=== PATIENT | male | born 1965 | race Caucasian/White ===

== ENCOUNTER 2016-05-07 00:24 | Inpatient (IN) ==
[2016-05-07] MEDS ORDERED: MORPHINE 2 MG/1 ML SYRINGE IV STA (00:51)
[2016-05-07] MEDS ORDERED: ASPIRIN 325 MG TABLET PO STA (00:51)
[2016-05-07] MEDS ORDERED: ALUM/MAG/SIMETH/LIDO VISC 1:1 30 ML BOTTLE PO STA (00:51)
[2016-05-07] MEDS ORDERED: ONDANSETRON 4 MG/2 ML VIAL IV STA (00:51)
[2016-05-07] MEDS ORDERED: NITROGLYCERIN 2% OINT 1 INCH/GM PACK TOP STA (00:51)
[2016-05-07] MEDS ORDERED: MORPHINE 2 MG/1 ML SYRINGE ONE (01:00)
[2016-05-07] MEDS ORDERED: ONDANSETRON 4 MG/2 ML VIAL ONE (01:00)
[2016-05-07] MEDS ORDERED: NITROGLYCERIN 2% OINT 1 INCH/GM PACK TOP ONE (01:00)
[2016-05-07] MEDS ORDERED: ASPIRIN 325 MG TABLET ONE (01:00)
[2016-05-07] MEDS ORDERED: ALUM/MAG/SIMETH/LIDO VISC 1:1 30 ML BOTTLE PO ONE (01:00)
[2016-05-07 01:17] LABS: Basophils # 0.1 10*3/uL (0.0-0.2); Basophils % 0.6 % (0.0-0.8); Eosinophils # 0.3 10*3/uL (0.0-0.87); Eosinophils % 2.4 % (0.00-10.9); Hematocrit 41.9 VOL% (42.0-52.0); Hemoglobin 14.4 GM/DL (14.0-18.0); Immature Granulocytes % 0.4 %; Immature Granulocytes Absolute 0.05 #; Lymphocytes # 1.5 10*3/uL (1.4-4.0); Mean Corpuscular HGB Conc 34.4 GM/DL (32-36); Mean Corpuscular Hemoglobin 30 PG (27-34); Mean Corpuscular Volume 87.7 FL (87-102); Mean Platelet Volume 11.1 FL (9.6-12.0); Neutrophils # 9.6 10*3/uL (1.4-7.4); Neutrophils % 76.6 % (38.7-73.9); Platelet Count 249 10*3/uL (130-400); Red Blood Count 4.78 10*6/uL (3.8-5.5); Red Cell Distribution Width 13.4 % (9.3-17.3); White Blood Count 12.5 10*3/uL (4.5-13.71)
[2016-05-07 01:18] LABS: Albumin 4.2 G/DL (3.4-5.0); Bilirubin,Total 0.5 MG/DL (0.2-1.0); Calcium 9.5 MG/DL (8.5-10.1); Magnesium 2.4 MG/DL (1.8-2.4); Osmolality,Calculated 294.6 MOS/KG (273-304); Potassium 4.4 MMOL/L (3.5-5.1); Total Protein 6.9 G/DL (6.4-8.3)
[2016-05-07 01:34] LABS: Apearance,Urine CLEAR (Clear); Bilirubin,Urine Negative (Negative); Blood, Urine Negative (Negative); Glucose,Urine (UA) Negative (Negative); Ketones,Urine Negative (Negative); Nitrite,Urine Negative (Negative); Protein,Urine Negative; RBC,Urine <1 /HPF (0-4); Urine Color Yellow (Yellow); Urine Specific Gravity 1.018 (1.001-1.035); Urine Urobilinogen < 2.0 EU/DL (0.2-1.0); WBC,Urine <1 /HPF (0-6)
[2016-05-07] MEDS ORDERED: ENOXAPARIN 100 MG/ML SYRINGE SUBCUT STA (01:40)
--- NOTE | 2016-05-07 01:41 | Emergency Department Note ---
Israel Gonsales Sierra, am scribing for, and in the presence of, Matt Caruso MD 01:24. Shady Gonsales Charles R, MD, personally performed the services described in this documentation, ascribed by Lainey Wood in my presence, and it is both accurate and complete . Arrival - Arrival Chief Complaint: Chest Pain Stated Complaint: chest pain ED Nursing Triage Note: pt arrives ems from home with complaint of sudden chest pain with n/v radiating down right arm after eating chili. pt currently states pain 08/07, denies sob. pt denies hx. pt received aspirin 325 po enroute. 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 He reports chest pain feels like an elephant sitting on his chest. Pt states he ate chili after sxs occurred. Pt has associated sxs of N/V. He reports he does still have his gallbladder and a family history of KS with both his parents after age of 60 but denies being diagnosed with heart or reflux problems. 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 Manzano. He reports he quit smoking a week ago. No other complaints/pain in ED. Onset (ago): hour(s) Consistency: constant Severity: mild, moderate Severity scale (1-10): 4 Allergies/Adverse Reactions: Allergies Allergy/AdvReac Type Severity Reaction Status Date / Time No Known Allergies Allergy Verified 05/07/16 00:41 Home Medications: Home Medications Medication Instructions Recorded Confirmed Type No Known Home Medications [No 05/07/16 05/07/16 History Known Home Medications] Review of System - Review of System 12 point system: reviewed and no additional remarkable complaints except as stated - Review of System Constitutional: Absent: fever Respiratory: Absent: cough Cardiovascular: Present: chest pain (lower part of chest) Gastrointestinal: Present: nausea, vomiting. Absent: abdominal pain Musculoskeletal: Present: arm pain (chest pain radiates down right arm). Absent : back pain, leg pain, neck pain Skin: Absent: rash Neurological: Absent: headache, confusion Psychiatric: Absent: anxiety Medical,Surgical,& Family Hx - Social History Smoking Status: Former smoker Frequency of Alcohol Use: Occasionally Type of Drug Use: None Exam Vital Signs: Vital Signs Temperature 98.1 F 05/07/16 00:31 Pulse Rate 86 05/07/16 00:38 Respiratory Rate 20 05/07/16 00:38 Blood Pressure 124/72 05/07/16 00:38 O2 Sat by Pulse Oximetry 97 05/07/16 00:38 - General General appearance: alert, in no apparent distress - Head Head exam: Present: atraumatic, normocephalic - Eye Eye exam: Present: PERRL, EOMI - ENT ENT exam: Present: mucous membranes moist. Absent: mucous membranes dry - Neck Neck exam: Present: full ROM. Absent: tenderness - Chest Chest inspection: Present: symmetric chest wall rise, tenderness (epigastric tenderness) - Respiratory Respiratory exam: Present: normal lung sounds bilaterally. Absent: respiratory distress - Cardiovascular Cardiovascular exam: Present: bradycardia, normal heart sounds - Abdominal Exam Abdominal exam: Present: soft. Absent: tenderness - Extremities Exam Extremities exam: Present: full ROM. Absent: tenderness - Back Exam Back exam: Present: full ROM. Absent: tenderness - Neurological Exam Neurological exam: Present: alert, oriented X3, CN II-XII intact. Absent: motor sensory deficit - Psychiatric Psychiatric exam: Present: normal affect, normal mood - Skin Skin exam: Present: warm, dry Course - Consultations Consultation #1: Dr. Zhang will admit the patient Time: 01:41 Results - Labs CBC & BMP: 05/07/16 00:37 05/07/16 00:37 Lab Results: I have reviewed the patients labs Labs: Laboratory Tests 05/07/16 05/07/16 05/07/16 00:37 00:37 00:37 Hct 41.9 L Neut % (Auto) 76.6 H Lymph % (Auto) 12.0 L Neut # (Auto) 9.6 H Dixon # (Auto) 1.0 H Sodium 146 H Anion Gap 16.4 H BUN 25 H Glucose 116 H Troponin I 0.080 H Disposition Clinical Impression: Chest pain, Elevated troponin Case discussed with: patient, patient's family Disposition: Still a Patient Condition: Stable Time of Disposition: 01:42
[2016-05-07 01:42] LABS: Barbiturates Screen,Urine Negative (Negative); Benzodiazepines Screen,Urine Negative (Negative); Cannabinoid Screen,Urine Negative (Negative); Opiate Screen,Urine Negative (Negative); Phencyclidine Screen,Urine Negative (Negative)
[2016-05-07] MEDS ORDERED: MORPHINE 2 MG/1 ML SYRINGE IV PRN (02:14)
[2016-05-07] MEDS ORDERED: ACETAMINOPHEN 325 MG TABLET PO PRN (02:14)
[2016-05-07] MEDS ORDERED: BISACODYL 5 MG TABLET PO PRN (02:14)
[2016-05-07] MEDS ORDERED: ONDANSETRON 4 MG/2 ML VIAL IV PRN (02:14)
--- NOTE | 2016-05-07 02:17 | Hospitalist History & Physical ---
Assessment and Plan - Time spent with patient Time spent discussing smoking cessation with patient: 3 to 10 minutes (1) Dyslipidemia Status: Acute Current Visit: Yes (2) Smoker Status: Acute Current Visit: Yes (3) Family history of heart disease Status: Acute Current Visit: Yes (4) Chest pain Status: Acute Current Visit: Yes (5) Elevated troponin Status: Acute Assessment and plan: Plan: Observe on telemetry, check serial cardiac enzymes, supportive care for chest pain. Given strong family history, his smoking history, and description of symptoms, may not be unreasonable to obtain stress test. If cardiac enzymes elevate significantly or EKG shows acute ischemic changes, would likely pursue left heart cath. Current Visit: Yes History of Present Illness Chief complaint: chest pressure with pain radiating down the right arm History of present illness: Mr. Miller is a 50 year old male with history of dyslipidemia. He takes fish oil. His primary care provider Dr. Woodruff had put him on pravastatin however he is intolerant to this due to muscle aches. He began having significant chest pressure with pain radiating down the right arm rated at worst of 6 out of 10, around 10 p.m. He became nauseated and vomited 1. He denies shortness of breath or headache/dizziness. The pain lasted until he got to the emergency room, it was partially relieved with aspirin. At the bedside he appears really comfortable he has nitro paste to the chest. He still reports some waxing and waning mild chest pressure but no radiation down the arm. He does not appear to have acute ST elevation or depression on EKG however we do not have a baseline EKG for comparison. His troponin is mildly abnormal and I was asked to admit the patient for further management. Home Medications Medication Instructions Recorded Confirmed Type No Known Home Medications [No 05/07/16 05/07/16 History Known Home Medications] Allergies Allergy/AdvReac Type Severity Reaction Status Date / Time No Known Allergies Allergy Verified 05/07/16 00:41 Medical,Surgical,& Family Hx - Medical History Cardio: No history of: CAD, Hypertension Endocrine: No history of: Diabetes Mellitus (NIDDM) - Surgical History Surgical History: noncontributory - Family History Family History: Reports;: Family Heart Disease - Social History Smoking Status: Former smoker (for 2 pack-a-day smoker quit one week ago) Have you smoked in the last 12 months: Yes Time spent discussing smoking cessation with patient: 3 to 10 minutes Frequency of Alcohol Use: Occasionally Type of Drug Use: None Marital Status: Unknown Functional capacity: independent ambulation Review of systems: A 12 point review of systems is negative except as specified in the HPI Exam - Constitutional Vitals: Period Temp Pulse Resp BP Sys/Kitchen Pulse Ox Last 24 Hr 98.1 F 56-86 18-20 117-124/72-84 96-97 Exam: EXAM: CONSTITUTIONAL: non toxic, NAD HEENT: NC, AT, OP benign, ALVARO, EOMI CV: RRR no m/g/r, pain not reproducible with palpation RESP: clear B/L, no w/r/r GI: abd soft, NT, ND, +bowel sounds INTEGUMENTARY: no lesions or rash EXTREMITIES: no c/c/e NEURO: no focal deficits PSYCH: unremarkable, A/O x3 Results - Labs CBC & BMP: 05/07/16 00:37 05/07/16 00:37 Lab Results: I have reviewed the past 24 hour labs - EKG EKG shows: sinus rhythm - Diagnostic Findings Procedure: Chest x-ray: image reviewed by me Quality Measures - Stroke Onset of Symptoms Date: 05/07/16
[2016-05-07] MEDS ORDERED: ENOXAPARIN 80 MG/0.8 ML SYRINGE SUBCUT ONE (02:33)
[2016-05-07 04:59] LABS: Basophils # 0.1 10*3/uL (0.0-0.2); Basophils % 0.6 % (0.0-0.8); Eosinophils # 0.1 10*3/uL (0.0-0.87); Eosinophils % 1.2 % (0.00-10.9); Hematocrit 38.1 VOL% (42.0-52.0); Hemoglobin 12.6 GM/DL (14.0-18.0); Immature Granulocytes % 0.3 %; Immature Granulocytes Absolute 0.03 #; Lymphocytes # 1.7 10*3/uL (1.4-4.0); Mean Corpuscular HGB Conc 33.1 GM/DL (32-36); Mean Corpuscular Hemoglobin 30 PG (27-34); Mean Corpuscular Volume 89.2 FL (87-102); Mean Platelet Volume 11.1 FL (9.6-12.0); Monocytes # 0.8 10*3/uL (0.11-0.8); Monocytes % 8.1 % (1.7-12.7); Neutrophils # 7.1 10*3/uL (1.4-7.4); Neutrophils % 72.8 % (38.7-73.9); Platelet Count 208 10*3/uL (130-400); Red Blood Count 4.27 10*6/uL (3.8-5.5); Red Cell Distribution Width 13.6 % (9.3-17.3); White Blood Count 9.8 10*3/uL (4.5-13.71)
[2016-05-07 05:35] LABS: Calcium 8.5 MG/DL (8.5-10.1); Osmolality,Calculated 294.6 MOS/KG (273-304); Potassium 4.3 MMOL/L (3.5-5.1); Risk Ratio 4.78; VLDL CHOLESTEROL 24.2 MG/DL
--- NOTE | 2016-05-07 07:18 | EKG Report ---
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
--- NOTE | 2016-05-07 07:36 | EKG Report ---
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
[2016-05-07] MEDS: PANTOPRAZOLE 40 MG TABLET PO SCH (08:17)
[2016-05-07] MEDS: ASPIRIN EC 325 MG TABLET PO SCH (08:17)
--- NOTE | 2016-05-07 08:18 | XRay Report ---
History: Chest pain. Nausea and vomiting Date: 05/07/2016 at 12:45 AM Study: Chest x-ray AP portable Comparison exam: No previous chest x-ray available There is borderline to mild cardiomegaly. There is no mediastinal mass. The pulmonary vasculature is not engorged. The lungs and pleural spaces are clear for shallow breath. There is no acute osseous abnormality. Impression: No acute cardiopulmonary process. Borderline cardiomegaly PROCEDURE INTERPRETED AT [facility] DEPARTMENT OF RADIOLOGY Final Report Signed by: Dr. Whit Guthrie
--- NOTE | 2016-05-07 08:51 | Cardiology Consult Note ---
Assessment and Plan (1) Non-STEMI (non-ST elevated myocardial infarction) Status: Acute Assessment and plan: He has a minimally elevated troponin. We need his CPKs. He'll need car catheterization were discussed in history present illness. We plan this out tomorrow. We'll do today. He has recurrent pains. Current Visit: Yes (2) Dyslipidemia Status: Chronic Assessment and plan: Patient is unable take atorvastatin and pravastatin previously. We will try him on Crestor and and if fails will try Livalo Current Visit: Yes (3) Family history of heart disease Status: Chronic Assessment and plan: Mother and father both coronary disease. Current Visit: Yes (4) Smoker Status: Chronic Assessment and plan: States he quit smoking week ago just because he decided to do so. Current Visit: Yes History of Present Illness - Data of Consult Patient: new to practice Consult date: 05/07/16 Requesting Physician: Ludwig Alexandre Primary care physician: Pedro Woodruff - Consult Narrative Reason for consult: chest pain History of present illness: Mr. Miller is a 50 year old male who yesterday about 10 p.m. was outside with his dog. He is not physically active though. He developed sudden onset of pain across his chest discomfort heavy aching sensation. Radial his right arm and his neck. He became had nausea vomiting with it but no diaphoresis or dyspnea. This persisted and he took an aspirin at home. He presented mercury stable chest pain was treated there. With that he had no further chest pains being mid cantrell. The patient on has no prior history of cardiac disease. He is had no angina or exertional dyspnea or or exertional chest discomfort. He's had no palpitations or syncope or near syncope. He denies any PND or orthopnea. His ECG reveals sinus rhythm with some sinus bradycardia but without any acute ST changes. There was no T-wave abnormalities. There are some Q waves inferiorly that may indicate an old inferior myocardial infarction. The patient has a significant family history of heart disease and has dyslipidemia for which she is not on a statin drug. He also was a smoker but quit smoking one week ago. This patient needs chronic catheterization is as he is stable we will do this in the morning. We'll do it earlier today if necessary if he has recurrent pains. I discussed this procedure detail with the patient and his reviewing indication procedure high would be carried out as well as its risks. I discussed cardiac catheterization and percutaneous coronary intervention with the patient and available family. I reviewed with them the indications for the procedure and the basis of how the procedure would be carried out. I also reviewed with them the risk of the procedure which include but not necessarily limited to access site bleeding, bruising, pain, swelling or vascular injury that may require emergency vascular surgery, blood transfusion, or thrombin injection. Also discussed the possibility of stroke, myocardial infarction, arrhythmia which may require electrocardioversion, and the possibility of dye reaction that would require medical therapy. Also discussed the possibility of coronary artery injury, ruptured, closure or perforation that may require emergency bypass surgery. We also discussed the possibility of from a major complication. They voice understanding and agree to proceed. CC: Ludwig Alexandre - Home Medications and Allergies Home Medications: Home Medications Medication Instructions Recorded Confirmed Type Luckey-3 Fatty Acids [Fish Oil 1,000 mg PO QAM 05/07/16 05/07/16 History Concentrate] Allergies/Adverse Reactions: Allergies Allergy/AdvReac Type Severity Reaction Status Date / Time No Known Allergies Allergy Verified 05/07/16 00:41 Review of systems: Constitutional: Denies anorexia, chills, fatigue, fever, frequent falls, night sweats, weight gain, weight loss Eyes: Denies visual changes or loss of vision Ears: Denies decreased hearing, vertigo Nose, mouth and throat: Denies dysphagia, epistaxis, headaches, neck pain, tongue swelling, Neck: Denies thyromegaly or masses. No stiffness. Cardiovascular: as per HPI Respiratory: Denies cough, dyspnea, hemoptysis, dyspnea on exertion, wheezing, snoring. Smoker. He does have instructed sleep apnea and is on CPAP. Gastrointestinal: Denies abdominal pain, constipation, dyspepsia, dysphagia, hematemesis, hematochezia, melena, nausea, vomiting Genitourinary: Denies dysuria, hematuria, nocturia Musculoskeletal: Denies arthralgias, joint swelling, muscle weakness, myalgias Neurological: denies abnormal gait, abnormal speech, confusion, convulsions, frequent falls, headaches, memory loss, syncope Psychiatric: Denies anxiety, confusion, depression Endocrine: Denies cold intolerance, fatigue, heat intolerance Hematologic/Lymphatic: Denies easy bleeding, easy bruising Dermatologic: Denies Rash, itching, shingles Medical,Surgical,& Family Hx - Medical History Cardio: No history of: CAD, Hypertension Endocrine: History of: Dyslipidemia No history of: Diabetes Mellitus (NIDDM) Respiratory: History of: Obstructive Sleep Apnea - Surgical History Orthopedic Surgeries: Surgical HX of;: Orthopedic Surgery (left forearm/wrist for soft tissue injury) - Family History Family History: Reports;: Family Heart Disease (mother and father both having coronary disease and bypass surgery.) - Social History Smoking Status: Former smoker (quit smoking one week ago but prior to that smoked one to 2 packs a day.) Have you smoked in the last 12 months: Yes Time spent discussing smoking cessation with patient: 3 to 10 minutes Frequency of Alcohol Use: Occasionally Type of Drug Use: None Marital Status: Lives With:: Spouse Functional capacity: independent ambulation Physical Examination Vital Signs Temp Pulse Resp BP Pulse Ox 98.1 F 56 L 18 117/84 96 05/07/16 00:31 05/07/16 00:31 05/07/16 00:31 05/07/16 00:31 05/07/16 00:31 Other: General appearance: Overweight/obese, no acute distress Head exam: normal inspection, atraumatic Eye exam: Pupils are equal and reactive. EOMI. There is no trauma. Ear exam: Anatomically normal. Normal auditory acuity to conversation. Oral exam: No significant oral lesions. Neck exam: normal inspection no JVD. No carotid bruit. Trachea is in midline. Respiratory exam: clear to auscultation bilaterally posteriorly and anteriorly with good air movement. No rales, rhonchi or wheezes. Cardiovascular exam: regular rate and rhythm, no murmur or gallop or rub. No precordial lift. No bruits over the major arteries. Chest wall/torso: Anatomically normal. No tenderness, deformity Peripheral Pulses: 2+ throughout. GI/Abdominal exam: Obese. Normal bowel sounds, soft and nontender, no abdominal bruits or pulsatile masses. Musculoskeletal/Extremities exam: normal inspection without edema or cyanosis. No deformities or trauma. Neurological exam: alert, oriented X3. There is no gross neurologic deficits. Psychiatric exam: normal affect, normal mood. Cognitive function is grossly intact. Skin exam: normal color, warm. No rashes or other skin lesions. Result/EKG - Labs CBC & BMP: 05/07/16 04:21 05/07/16 04:21 Lab Results: I have reviewed the past 24 hour labs (the patient's troponin his increased on the 2.080. His BNP was 16. His lipids are elevated.) Labs: Laboratory Results - last 24 hr 05/07/16 05/07/16 05/07/16 04:21 04:21 04:21 WBC 9.8 RBC 4.27 Hgb 12.6 L Hct 38.1 L MCV 89.2 MCH 30 MCHC 33.1 RDW 13.6 Plt Count 208 MPV 11.1 Neut % (Auto) 72.8 Lymph % (Auto) 17.0 L [place] % (Auto) 8.1 Eos % (Auto) 1.2 Baso % (Auto) 0.6 Neut # (Auto) 7.1 Lymph # (Auto) 1.7 [place] # (Auto) 0.8 Eos # (Auto) 0.1 Baso # (Auto) 0.1 Immature Gran % 0.3 Nucleated RBC % 0.0 Immature Gran # 0.03 Nucleated RBCs # 0.00 Sodium 146 H Potassium 4.3 Chloride 110 H Carbon Dioxide 26 Anion Gap 14.3 BUN 24 H Creatinine 1.20 GFR Calculation 79 BUN/Creatinine Ratio 20.00 Glucose 111 H Calculated Osmolality 294.6 Calcium 8.5 Troponin I 0.845 H D Triglycerides 121 Cholesterol 196 LDL Cholesterol 138.0 VLDL Cholesterol 24.2 HDL Cholesterol 41 Heart Disease Risk Ratio 4.78 05/07/16 06:22 WBC RBC Hgb Hct MCV MCH MCHC RDW Plt Count MPV Neut % (Auto) Lymph % (Auto) [place] % (Auto) Eos % (Auto) Baso % (Auto) Neut # (Auto) Lymph # (Auto) [place] # (Auto) Eos # (Auto) Baso # (Auto) Immature Gran % Nucleated RBC % Immature Gran # Nucleated RBCs # Sodium Potassium Chloride Carbon Dioxide Anion Gap BUN Creatinine GFR Calculation BUN/Creatinine Ratio Glucose Calculated Osmolality Calcium Troponin I 2.080 H D Triglycerides Cholesterol LDL Cholesterol VLDL Cholesterol HDL Cholesterol Heart Disease Risk Ratio - Impressions Impressions: Initial ECG was sinus rhythm with incomplete right bundle-branch block/slight right ventricular conduction delay. There is no specific acute abnormalities. Possible small Q waves inferiorly. Follow-up ECG reveals the same Q waves inferiorly but does not have the incomplete right bundle branch block. Still no acute ST changes of ischemia. Quality Measures - Stroke Onset of Symptoms Date: 05/07/16 Specialty Discharge - Follow Up or Referrals - Discharge Medications No Action Luckey-3 Fatty Acids [Fish Oil Concentrate] 1,000 mg PO QAM
[2016-05-07] MEDS ORDERED: ASPIRIN 325 MG TABLET PO ONE (09:04)
[2016-05-07] MEDS ORDERED: POTASSIUM CHLORIDE RIDER 10 MEQ in PREMIX 1 EACH IV PRN (09:04)
[2016-05-07] MEDS ORDERED: MAGNESIUM SULF RIDER 2 GM in PREMIX 1 EACH IV PRN (09:04)
[2016-05-07] MEDS ORDERED: DIAZEPAM 5 MG TABLET PO ONE (09:04)
[2016-05-07] MEDS ORDERED: diphenhydrAMINE CAP 25 MG CAPSULE PO ONE (09:04)
--- NOTE | 2016-05-07 09:51 | Hospitalist Progress Note ---
Assessment and Plan (1) Non-STEMI (non-ST elevated myocardial infarction) Status: Acute Assessment and plan: Troponin today is 2.080. He is not experiencing chest pain. I appreciate the Cardiology note. The plan is for cardiac cath tomorrow. Current Visit: Yes (2) Dyslipidemia Status: Chronic Assessment and plan: I agree with Cardiology's plans for patient who has been so far statin intolerant. Current Visit: Yes (3) Cigarette smoker Status: Acute Assessment and plan: He discontinued smoking one week ago. Current Visit: Yes Exam - Constitutional Vitals: Period Temp Pulse Resp BP Sys/Kitchen Pulse Ox Last 24 Hr 98.5 F-98.6 F 47-62 17-18 103-108/53-55 97-98 General appearance: no acute distress - Head Head exam: Present: normal inspection - Neck Neck exam: Present: normal inspection - Respiratory Respiratory exam: Present: clear to auscultation bilaterally - Cardiovascular Cardiovascular exam: Present: regular rate and rhythm - GI/Abdominal GI/Abdominal exam: Present: normal bowel sounds, soft, other (nontender) - Extremities Exam Extremities exam: Present: normal inspection - Skin Skin exam: Present: normal color Results - Labs CBC & BMP: 05/07/16 04:21 05/07/16 04:21 Quality Measures - Stroke Onset of Symptoms Date: 05/07/16 Specialty Discharge - Follow Up or Referrals - Discharge Medications No Action Wing-3 Fatty Acids [Fish Oil Concentrate] 1,000 mg PO QAM
[2016-05-07] MEDS: METOPROLOL TARTRATE 25 MG TABLET PO SCH ×2 (11:52→21:19)
[2016-05-07] MEDS: ROSUVASTATIN 20 MG TABLET PO SCH (11:52)
[2016-05-07] MEDS: ENOXAPARIN 80 MG/0.8 ML SYRINGE SUBCUT SCH ×2 (11:53→21:20)
[2016-05-07] MEDS: NITROGLYCERIN 2% OINT 1 INCH/GM PACK TOP SCH ×2 (12:15→19:09)
[2016-05-07 15:07] LABS: CKMB % 6.7 %
[2016-05-07 15:11] LABS: Troponin I Only 18.4 NG/ML (0.00-0.045)
[2016-05-07] MEDS ORDERED: ENOXAPARIN 40 MG/0.4 ML SYRINGE SUBCUT SCH (21:00)
[2016-05-07] MEDS ORDERED: ATORVASTATIN 40 MG TABLET PO SCH (21:00)
[2016-05-07] MEDS: SODIUM CHLORIDE 0.9% 1,000 ML IV SCH (21:19)
[2016-05-08] MEDS: NITROGLYCERIN 2% OINT 1 INCH/GM PACK TOP SCH ×2 (01:15→06:25)
[2016-05-08 05:25] LABS: CKMB % 5.2 %
[2016-05-08 05:35] LABS: Troponin I Only 24.4 NG/ML (0.00-0.045)
[2016-05-08] MEDS: SODIUM CHLORIDE 0.9% 1,000 ML IV SCH ×3 (06:00→21:20)
--- NOTE | 2016-05-08 06:54 | Cardiology Progress Note ---
Assessment and Plan (1) Non-STEMI (non-ST elevated myocardial infarction) Status: Acute Assessment and plan: He is had an increase in his troponin and CPK. His ECG is not back. Current Visit: Yes (2) Dyslipidemia Status: Chronic Assessment and plan: Patient is unable take atorvastatin and pravastatin previously. We will try him on Crestor and and if fails will try Livalo Current Visit: Yes (3) Family history of heart disease Status: Chronic Assessment and plan: Mother and father both coronary disease. Current Visit: Yes (4) Smoker Status: Chronic Assessment and plan: States he quit smoking week ago just because he decided to do so. Current Visit: Yes Cardiology - PN: Subj Interval history: Patient denies any further chest pain. He is not short of breath or other complaints. Said no palpitations. Rhythm is been sinus is been a little bradycardic. Vital signs been stable. Cardiac enzymes the peak CPK of 13.67 and troponin of 18. Exam (Progress Note) - Constitutional Vitals: Period Temp Pulse Resp BP Sys/Kitchen Pulse Ox Last 24 Hr 97.0 F-98.7 F 47-57 18-20 103-118/55-67 96-98 Exam: General appearance: Overweight/obese, no acute distress Head exam: normal inspection, atraumatic Eye exam: Pupils are equal and reactive. EOMI. There is no trauma. Neck exam: normal inspection no JVD. No carotid bruit. Trachea is in midline. Respiratory exam: clear to auscultation bilaterally posteriorly and anteriorly with good air movement. No rales, rhonchi or wheezes. Cardiovascular exam: regular rate and rhythm, no murmur or gallop or rub. No precordial lift. No bruits over the major arteries. Chest wall/torso: Anatomically normal. No tenderness, deformity Peripheral Pulses: 2+ throughout. GI/Abdominal exam: Obese. Normal bowel sounds, soft and nontender, no abdominal bruits or pulsatile masses. Musculoskeletal/Extremities exam: normal inspection without edema or cyanosis. No deformities or trauma. Neurological exam: alert, oriented X3. There is no gross neurologic deficits. Psychiatric exam: normal affect, normal mood. Cognitive function is grossly intact. Skin exam: normal color, warm. No rashes or other skin lesions. Result/EKG - Labs CBC & BMP: 05/07/16 04:21 05/07/16 04:21 Lab Results: I have reviewed the past 24 hour labs (peak CPK of 1367 with troponin of 24.4.) Labs: Laboratory Results - last 24 hr 05/07/16 05/07/16 05/08/16 06:22 14:13 03:04 Total Creatine Kinase 1367 H 1222 H CK-MB (CK-2) 91.8 H 63.3 H D CK and CKMB Interp 6.7 5.2 Troponin I 2.080 H D 18.400 H D 24.400 H D Quality Measures - Stroke Onset of Symptoms Date: 05/07/16 Specialty Discharge - Follow Up or Referrals - Discharge Medications No Action [place]-3 Fatty Acids [Fish Oil Concentrate] 1,000 mg PO QAM
--- NOTE | 2016-05-08 06:59 | History and Physical Update ---
Sedation H&P Update - History and Physical H&P was reviewed, the patient examined and there: are no changes in the patients condition since last H&P was completed. - Dictation Physical: refer to H&P completed by admitting physician - Physical Exam Mental Status: alert and oriented Heart: regular rate and rhythm Lung: clear to auscultation Abdomen: within normal limits Vitals: within normal limits History and Physical Changes: None - Sedation Plan for Sedation: moderate Patient Consent: Procedure disscussed with patient and patinet has consented., Risks and benefits were discussed with patient,including infection,, bleeding, injury to surrounding structures, seizure, temporary nerve, Patient understands and accepts potential risks/benefits and agrees to, proceed. ASA Class: III Airway Assessment: Class III: Soft palate, base of uvula visible
--- NOTE | 2016-05-08 07:17 | EKG Report ---
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
[2016-05-08] MEDS ORDERED: diphenhydrAMINE CAP 50 MG CAPSULE ONE (07:37)
[2016-05-08] MEDS ORDERED: DIAZEPAM 5 MG TABLET ONE (07:38)
[2016-05-08] MEDS: ASPIRIN EC 325 MG TABLET PO SCH (07:44)
[2016-05-08] MEDS ORDERED: MIDAZOLAM 2 MG/2 ML VIAL ONE (07:55)
[2016-05-08] MEDS ORDERED: fentaNYL 100 MCG/2 ML VIAL ONE (07:55)
[2016-05-08] MEDS ORDERED: LIDOCAINE 1% 20 ML VIAL ONE (07:56)
[2016-05-08] MEDS ORDERED: ENOXAPARIN 30 MG/0.3 ML SYRINGE ONE (08:22)
[2016-05-08] MEDS ORDERED: TIROFIBAN 5,000 MCG/100 ML PREMIX IV ONE (08:25)
[2016-05-08] MEDS ORDERED: TICAGRELOR 90 MG TABLET ONE (08:49)
[2016-05-08] MEDS ORDERED: ZALEPLON 5 MG CAPSULE PO PRN (08:50)
--- NOTE | 2016-05-08 08:58 | Operative Note ---
Date of procedure: 05/08/16 Procedure Preformed: Left heart cath with stenting of distal RCA Surgeon / Physician: Toy Erazo Wire Transfer Clerk: Adonis Daigle Post-op diagnosis: same Findings: 99% stenosis distal RCA with successful stenting of this area. See full report for details. Specimens: none sent Estimated blood loss: minimal Condition: stable Anesthesia: local, conscious sedation Disposition: floor
--- NOTE | 2016-05-08 09:03 | Cardiac Catheterization ---
Date of Procedure:: 05/08/16 Pre-op Diagnosis: Non-STEMI, CAD Post-op diagnosis: same Procedure: LEFT HEART CATHERIZATION History: Pre-Op diagnosis: Postoperative diagnosis: Procedures: 1. Left heart catheterization. 2. Left ventricular angiogram. 3. Selective left and right coronary angiograms. 4. Percutaneous coronary intervention with stent in 5.. Right common femoral artery angiogram with Angio-Seal hemostasis. 6. Left internal mammary artery angiogram. Equipment: 6 [place]ander arterial sheath, 6 [place] diagnostic pigtail catheter, JL4 and JR4 diagnostic catheters. A 6 [place] Angio-Seal hemostatic device. For percutaneous coronary intervention: Medications: Preoperative Benadryl and Valium given by mouth. Lidocaine 1% local anesthesia 10 mls administered by myself. Intraprocedure patient received Versed 2 milligrams IVP, fentanyl 100 micrograms IVP. For PCI: Lovenox 25 mgms; Aggrastat bolus 42 mls ; Aggrastat infusion 15.1 ml/hr, Brilinta 180 mgms. Complications: None immediate. Contrast: Omnipaque 201 milliliters. Description of procedure: After informed consent the patient was given preoperative medications and brought to the catheterization laboratory where their right groin was prepped and draped in usual fashion. IV sedation was then obtained after which local anesthesia was administered at the right groin over the right common femoral artery. Using modified Seldinger technique the right common femoral artery was cannulated with 6 [place] arterial sheath placed. The pigtail catheter was then advanced through the sheath in a retrograde approach through the aorta to the aortic valve. The catheter was advanced through the aortic valve where left ventricular pressures were measured. The catheter was then pulled back into the aortic root and pressures measured. The catheter was then advanced across the aortic valve into the left ventricle where left ventricular angiogram was obtained in the right anterior oblique view. The pigtail catheter was then removed. The JL4 diagnostic coronary catheter was then advanced through the sheath in a retrograde approach and used to cannulate the left coronary artery of which angiograms were obtained in multiple projections. This catheter was then removed. The JR 4 diagnostic coronary catheter was then advanced retrograde through the aorta and used to cannulate the right coronary artery of which angiograms were obtained in multiple projections. Angiograms were then reviewed. Intervention of the RCA was then carried out by advancing a J are 4 guide catheter through which a pro-water flexed PCI guidewire was advanced across the high-grade occlusion. Over this a 2.5 x 15 mm apex balloon was advanced and dilation interest. For 30 seconds was carried out. This was then exchanged at the angiograms for 2.0 x 12 mm Synergy GENO. This stent was deployed to atmospheres for 25 seconds. Final angiograms postintervention were then obtained and distal RCA had 0% residual stenosis and GUANACO-3 flow. This time the interventional equipment including guide catheter was removed and Angio- Seal hemostasis was obtained in the right common for artery. Hemodynamic data: LV 113/3 , EDP 22 ; AO root 112/72 , mean 91 . Left ventricular angiogram: Left ventricle size is normal may mild global hypokinesis with an ejection fraction of 50%. No similar regurgitation. Aortic valve. Tricuspid structure. The thoracic aorta is anatomically normal without gross pathology for the right oblique view. The abdominal aorta appears to be unremarkable. The sheath is inserted in the right common femoral artery. Left main coronary artery angiogram: Left main coronary artery is large bifurcated LAD and circumflex arteries. It is without stenosis. Left anterior descending artery angiogram: Proximally the LAD is a medium to large size vessel that extends to the posterior apical region. The first branch is a medium caliber vessel, larger myocardium. Dangles otherwise small caliber vessels. There is no LAD disease or stenosis present. Circumflex artery angiogram: Circumflex artery is a large caliber vessel proximally it immediately gives rise to a very proximal large first obtuse marginal branch. This comes larger myocardium. Beyond this is circumflex gives rise to several small vessels. There is no stenosis or other disease in the circumflex artery proper branches. There are collaterals from the distal circumflex artery to the distal RCA. Right coronary artery angiogram: RCA is a medium caliber vessel and dominant. Is 95% stenosis just before the takeoff of the PDA. The distal vessels best seen oh by way of [id number] collaterals. Postintervention the distal RCA is seen in the PDA and posterior branches are small medium caliber vessels. The AV node artery has takeoff distal RCA. PCI of RCA: The 99% distal RCA stenosis with GUANACO 1 flow was dilated 0% residual stenosis with GUANACO-3 flow. Right common femoral artery angiogram: This vessel was seen by way left ventricular angiogram runoff. Impression: 1. Left ventricle is normal size with low-normal systolic function ejection fraction 50%. 2. LVEDP is 22 mmHg and mild elevated. 3. No significant mitral regurgitation demonstrated. 4. Aortic valve appears to tricuspid structure without gradient. 5. Left coronary artery system is widely patent without stenosis or disease. 6. The RCA had 99% stenosis distally with GUANACO 1 flow with some collateralization from [id number]. 7. Successful stenting of the distal RCA to 0% residual stenosis and GUANACO- 3 flow. 8. Successful Angio-Seal hemostasis a right common for artery. Discussion: We'll monitor the patient postintervention cart catheterization. We 'll carry out risk factor modification. Follow up as an outpatient. As his patient noted on patient being sent for dictation thank you Implants: See above Anesthesia: local, moderate conscious sedation Surgeon / Physician: Toy Erazo Assistant Fitness Manager: other (Adonis STORM) Estimated blood loss: minimal Specimens: none sent Condition: stable Disposition: floor - Medications / Follow-up Referrals: Toy Erazo MD [Physician] - (1 week with ECG)
[2016-05-08] MEDS ORDERED: TIROFIBAN 5,000 MCG/100 ML PREMIX IV SCH (10:00)
[2016-05-08] MEDS: METOPROLOL TARTRATE 25 MG TABLET PO SCH ×2 (10:11→21:09)
--- NOTE | 2016-05-08 10:26 | Hospitalist Progress Note ---
Assessment and Plan (1) Non-STEMI (non-ST elevated myocardial infarction) Status: Acute Assessment and plan: He is stable s/p PCI of distal RCA. Current Visit: Yes (2) Dyslipidemia Status: Chronic Assessment and plan: I agree with Cardiology's plans for patient who has been so far statin intolerant. Current Visit: Yes (3) Cigarette smoker Status: Acute Assessment and plan: He discontinued smoking one week ago. I again counselled him on the importance of tobacco cessation. Current Visit: Yes Exam - Constitutional Vitals: Period Temp Pulse Resp BP Sys/Kitchen Pulse Ox Last 24 Hr 97.0 F-98.7 F 50-57 18-20 106-118/60-67 96-98 General appearance: no acute distress - Head Head exam: Present: normal inspection - Neck Neck exam: Present: normal inspection - Respiratory Respiratory exam: Present: clear to auscultation bilaterally - Cardiovascular Cardiovascular exam: Present: regular rate and rhythm - GI/Abdominal GI/Abdominal exam: Present: normal bowel sounds, soft, other (nontender) - Extremities Exam Extremities exam: Present: other (no groin hematoma) - Skin Skin exam: Present: normal color Results - Labs CBC & BMP: 05/07/16 04:21 05/07/16 04:21 Quality Measures - VTE Contraindication to Pharmacological VTE Prophylaxis: High Risk of Bleeding - Stroke Onset of Symptoms Date: 05/07/16 Specialty Discharge - Follow Up or Referrals - Discharge Medications No Action [place]-3 Fatty Acids [Fish Oil Concentrate] 1,000 mg PO QAM
--- NOTE | 2016-05-08 11:33 | Event Note ---
Patient doing well post-car catheterization right groin is stable. Discussed findings with he and his implants. Provide them with pictures of his angiograms and review the results with them. He can be discharged tomorrow. Stable.
[2016-05-08] MEDS: ASPIRIN EC 81 MG TABLET PO SCH (12:34)
[2016-05-08] MEDS: ENOXAPARIN 80 MG/0.8 ML SYRINGE SUBCUT SCH ×2 (12:35→21:09)
[2016-05-08] MEDS: TICAGRELOR 90 MG TABLET PO SCH ×2 (12:38→21:09)
[2016-05-08] MEDS: ROSUVASTATIN 20 MG TABLET PO SCH (12:45)
[2016-05-08] MEDS: LISINOPRIL 2.5 MG TABLET PO SCH (12:46)
[2016-05-08] MEDS: PANTOPRAZOLE 40 MG TABLET PO SCH (12:46)
[2016-05-09 05:57] LABS: Basophils # 0.1 10*3/uL (0.0-0.2); Basophils % 0.5 % (0.0-0.8); Eosinophils # 0.3 10*3/uL (0.0-0.87); Eosinophils % 3.5 % (0.00-10.9); Hematocrit 43.6 VOL% (42.0-52.0); Hemoglobin 14.8 GM/DL (14.0-18.0); Immature Granulocytes % 0.4 %; Immature Granulocytes Absolute 0.04 #; Lymphocytes # 1.5 10*3/uL (1.4-4.0); Lymphocytes % 15.4 % (21.2-54.2); Mean Corpuscular HGB Conc 33.9 GM/DL (32-36); Mean Corpuscular Hemoglobin 30 PG (27-34); Mean Corpuscular Volume 87.2 FL (87-102); Mean Platelet Volume 11.2 FL (9.6-12.0); Monocytes # 1.1 10*3/uL (0.11-0.8); Monocytes % 11.3 % (1.7-12.7); Neutrophils # 6.8 10*3/uL (1.4-7.4); Neutrophils % 68.9 % (38.7-73.9); Platelet Count 239 10*3/uL (130-400); Red Cell Distribution Width 13.3 % (9.3-17.3); White Blood Count 9.8 10*3/uL (4.5-13.71)
[2016-05-09 06:20] LABS: CKMB % 2.7 %; Calcium 8.9 MG/DL (8.5-10.1)
--- NOTE | 2016-05-09 07:30 | EKG Report ---
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
[2016-05-09] MEDS: PANTOPRAZOLE 40 MG TABLET PO SCH (10:04)
[2016-05-09] MEDS: LISINOPRIL 2.5 MG TABLET PO SCH (10:04)
[2016-05-09] MEDS: TICAGRELOR 90 MG TABLET PO SCH (10:04)
[2016-05-09] MEDS: ASPIRIN EC 81 MG TABLET PO SCH (10:04)
[2016-05-09] MEDS: ROSUVASTATIN 20 MG TABLET PO SCH (10:04)
[2016-05-09] MEDS: ENOXAPARIN 80 MG/0.8 ML SYRINGE SUBCUT SCH (10:05)
[2016-05-09] MEDS: METOPROLOL TARTRATE 25 MG TABLET PO SCH (10:05)
--- NOTE | 2016-05-09 10:20 | Discharge Summary ---
Hospital Course - Hospital Course Hospital Course: Mr. Miller was hospitalized with a NSTEMI. He was seen in consultation by Dr. Erazo of Cardiology. The patient underwent PCI of the distal RCA on 05/08/2016. He did well post procedure with no complications. He was counselled about cigarette smoking cessation. At the time of discharge, he was stable and eager to go home. Diagnosis - Discharge Diagnosis (1) Non-STEMI (non-ST elevated myocardial infarction) Status: Acute (2) Dyslipidemia Status: Chronic (3) Cigarette smoker Status: Acute Specialty Discharge - Follow Up or Referrals Follow up with: Toy Erazo MD [Physician] - (1 week with ECG) - Discharge Medications No Action [place]-3 Fatty Acids [Fish Oil Concentrate] 1,000 mg PO QAM Discharge Plan - Discharge Data Disposition: Disch To Home/Self Care Condition at Discharge: Stable Discharge Diet: advance to your usual diet Activity: resume usual activities as tolerated Hygiene: no restrictions - Discharge Medications New Aspirin EC Tab 81 mg PO DAILY tablet Ticagrelor [Brilinta] 90 mg PO BID #60 tablet Lisinopril [Prinivil] 2.5 mg PO DAILY #30 tablet Rosuvastatin [Crestor] 20 mg PO DAILY #30 tablet Continue [place]-3 Fatty Acids [Fish Oil Concentrate] 1,000 mg PO QAM - Follow Up or Referral Follow Up: Toy Erazo MD [Physician] - (1 week with ECG) - Forms/Instructions Instructions: Left Heart Catheterization (DC), Heart Healthy Diet (GEN), Cigarette Smoking and Your Health (GEN), Coronary Intravascular Stent Placement (DC) Exam - Constitutional Vitals: Period Temp Pulse Resp BP Sys/Kitchen Pulse Ox Last 24 Hr 97.0 F-97.2 F 60-75 18-20 102-140/62-76 95 Discharge Results Labs on day of discharge: Labs from last 24 hours 05/09/16 05/09/16 05:27 05:27 WBC 9.8 RBC 5.00 Hgb 14.8 D Hct 43.6 MCV 87.2 MCH 30 MCHC 33.9 RDW 13.3 Plt Count 239 MPV 11.2 Neut % (Auto) 68.9 Lymph % (Auto) 15.4 L [place] % (Auto) 11.3 Eos % (Auto) 3.5 Baso % (Auto) 0.5 Neut # (Auto) 6.8 Lymph # (Auto) 1.5 [place] # (Auto) 1.1 H Eos # (Auto) 0.3 Baso # (Auto) 0.1 Immature Gran % 0.4 Nucleated RBC % 0.0 Immature Gran # 0.04 Nucleated RBCs # 0.00 Sodium 143 Potassium 4.0 Chloride 108 H Carbon Dioxide 25 Anion Gap 14.0 BUN 16 Creatinine 1.10 GFR Calculation 87 BUN/Creatinine Ratio 14.00 Glucose 101 Calculated Osmolality 285.0 Calcium 8.9 Total Creatine Kinase 446 H D CK-MB (CK-2) 11.9 H D CK and CKMB Interp 2.7 Troponin I 12.000 H D DS: Provider Date of admission: 05/07/16 02:14 Primary care physician: . No PCP Attending physician on admission: Ludwig Alexandre Consults: 05/07/16 07:40 Consult to Physician [CONS] Routine Comment: Consulting Provider: Kaveh Chavez Consulting Provider Notified: Yes When should Consulting Provider be notified: Now When should Consulting Provider be notified: Now Person Notified: Dr Chavez Date Notified: 05/07/16 Time Notified: 07:28 05/08/16 08:50 Consult to Cardiac Rehabilitation [CONS] Routine Reason for Cardiac Rehabilitation: Risk Factor Modification Home Exercise Program/Hao Appt Out Pt Cardiac Rehab Discharging clinician: Ludwig Alexandre Expected date of discharge: 05/09/16
--- NOTE | 2016-05-09 11:41 | Cardiology Progress Note ---
Addendum entered and electronically signed by Melia Nichols NP 05/09/16 11: 46: Addendum: Patient NOT being discharged on betablocker as BP will now allow for introduction but may be challenged outpatient. Original Note: Assessment and Plan - Time spent with patient Time spent with patient: Less than 30 minutes (1) Hypertension Status: Chronic Assessment and plan: Low dose GABRIELLA and Betablocker Current Visit: Yes (2) Dyslipidemia Status: Chronic Assessment and plan: Crestor. Will adjust outpatient in order to gain better control. Current Visit: Yes (3) Smoker Status: Chronic Assessment and plan: Merits of tobacco cessation discussed for greater than 5 minutes. Current Visit: Yes (4) Non-STEMI (non-ST elevated myocardial infarction) Status: Resolved Current Visit: Yes Cardiology - PN: Subj Interval history: Mr. Miller, 50-year-old male, was admitted to the emergency department after experiencing a sudden onset of pain across his chest with a heavy aching sensation. He was diagnosed with NST ELIEL. His troponin increased to a maximum of 24.4 but was decreasing at discharge. He underwent elective cardiac catheterization performed by Dr. Erazo with the following noted: PCI to the distal RCA with drug-eluting stent. He tolerated the procedure well without complication. Labs were stable post cath. Right groin access reveal no evidence of hematoma or bruit. He is anxious for release home and his attending physician we'll release him home today. We discussed the importance of taking aspirin 81 mg orally daily without fail. We discussed the importance of taking Brilinta 90 mg orally twice a day without fail. He verbalizes understanding of this information. He is being given a prescription card for Brilinta. I've also discussed with the patient that should he be unable to afford Brilinta, contact Dr. Erazo's office so he can be transitioned to a less expensive medication. He is being discharged home on GABRIELLA inhibitor, beta valeriano and lipid-lowering agent. Patient was counseled regarding the merits of tobacco cessation. During this admission total cholesterol noted to be: 196 area tricuspid 121. LDL 138. HDL 41. Patient is being given a one week follow-up with Dr. Erazo. At that visit on labs will be obtained: BMP, magnesium and CBC. Exam (Progress Note) - Constitutional Vitals: Period Temp Pulse Resp BP Sys/Kitchen Pulse Ox Last 24 Hr 97.0 F-97.2 F 61-75 18-20 102-140/65-76 95 Exam: General: Appears well with no apparent distress. Pleasant and cooperative. Appears comfortable. HEENT: PERRL, normocephalic, atraumatic. Mucous membranes moist. No jaundice noted. Conjunctiva moist and clear, sclerae anicteric Neck: No JVD/HJR, no thyromegaly or lymphadenopathy noted. No carotid bruit appreciated Cardiac: Regular rate and rhythm. No murmur rub or gallop. Lungs: Clear to auscultation without accessory muscle use to assist the respiratory pattern. Not requiring oxygen. Abdomen: Soft, bowel sounds normoactive. Nontender and nondistended. No abdominal bruit or thrill noted. No masses noted. Musculoskeletal: No fluid collection. Decreased range of motion is noted. Extremities: Right groin reveals no evidence of hematoma or bruit. No clubbing , cyanosis noted. No edema noted. Upper extremity pulses 2+. Lower extremity pulses 2+. Capillary refill less than 3 seconds. Skin: No unusual lesions or rashes. No skin breakdown appreciated. Neuro: Awake, alert and oriented 3. Moves all extremities well without hemiparesis or paralysis. No essential tremor is appreciated. Result/EKG - Labs CBC & BMP: 05/09/16 05:27 05/09/16 05:27 Lab Results: I have reviewed the past 24 hour labs Labs: Laboratory Results - last 24 hr 05/09/16 05/09/16 05:27 05:27 WBC 9.8 RBC 5.00 Hgb 14.8 D Hct 43.6 MCV 87.2 MCH 30 MCHC 33.9 RDW 13.3 Plt Count 239 MPV 11.2 Neut % (Auto) 68.9 Lymph % (Auto) 15.4 L [place] % (Auto) 11.3 Eos % (Auto) 3.5 Baso % (Auto) 0.5 Neut # (Auto) 6.8 Lymph # (Auto) 1.5 [place] # (Auto) 1.1 H Eos # (Auto) 0.3 Baso # (Auto) 0.1 Immature Gran % 0.4 Nucleated RBC % 0.0 Immature Gran # 0.04 Nucleated RBCs # 0.00 Sodium 143 Potassium 4.0 Chloride 108 H Carbon Dioxide 25 Anion Gap 14.0 BUN 16 Creatinine 1.10 GFR Calculation 87 BUN/Creatinine Ratio 14.00 Glucose 101 Calculated Osmolality 285.0 Calcium 8.9 Total Creatine Kinase 446 H D CK-MB (CK-2) 11.9 H D CK and CKMB Interp 2.7 Troponin I 12.000 H D - EKG EKG results: interpreted by me EKG shows: sinus rhythm Quality Measures - VTE Contraindication to Pharmacological VTE Prophylaxis: High Risk of Bleeding - Stroke Onset of Symptoms Date: 05/07/16 Specialty Discharge - Follow Up or Referrals Follow up with: Toy Erazo MD [Physician] - (1 week with ECG) - Discharge Medications New Aspirin EC Tab 81 mg PO DAILY tablet Ticagrelor [Brilinta] 90 mg PO BID #60 tablet Lisinopril [Prinivil] 2.5 mg PO DAILY #30 tablet Rosuvastatin [Crestor] 20 mg PO DAILY #30 tablet Continue [place]-3 Fatty Acids [Fish Oil Concentrate] 1,000 mg PO QAM
[2016-05-09 12:02] VITALS: BP 118/73
--- NOTE | 2016-05-09 19:11 | ECHO Report ---
Bal Miller 05/09/2016 Exam Date: 09:53 Referring Physician: Sydnie Pena Technologist: LUZ Age: 50 Ht (in): Wt (lb): MExam [facility] Gender: Echo [id number]: Chest pain, unspecified, Non-ST elevIndications:ation (NSTEMI) myocardial infarction, s/p CATH with stent, Elevated troponin, Dyslipidemia, Personal history of nicotine dependence, Family history of CAD, SAHRA BP: / HR: SinusRhythm: Technical Quality: IMPRESSIONS Normal left ventricular size, without hypertrophy, with normal systolic function. Estimated left ventricular ejection fraction 55%. Normal diastolic function. Mild pulmonic regurgitation. MEASUREMENTS (Male / Female) Normal Values 2D ECHO LV Diastolic Diameter PLAX 4.8 cm 4.2 - 5.9 / 3.9 - 5.3 cm LV Systolic Diameter PLAX 3.3 cm LV Fractional Shortening PLAX 31.6 % IVS Diastolic Thickness 1.0 cm 0.6 - 1.0 / 0.6 - 0.9 cm LVPW Diastolic Thickness 1.0 cm 0.6 - 1.0 / 0.6 - 0.9 cm RV Internal Dim ED PLAX 2.3 cm Aortic Root Diameter 3.8 cm LA Systolic Diameter LX 3.2 cm 3.0 - 4.0 / 2.7 - 3.8 cm FINDINGS Left Ventricle Normal left ventricular size, without hypertrophy, with normal systolic function. Estimated left ventricular ejection fraction 55%. Normal diastolic function. Right Ventricle The right ventricle is normal in size and function. Right Atrium The right atrium is normal in size. Left Atrium The left atrium is normal in size. Mitral Valve Morphologically normal mitral valve. Trace mitral valve regurgitation. Aortic Valve Morphologically normal aortic valve without significant sclerosis or stenosis. There is no aortic regurgitation. Tricuspid Valve Morphologically normal tricuspid valve without significant stenosis or regurgitation. Pulmonary artery systolic pressure cannot be estimated due to lack of signal. Pulmonic Valve Morphologically normal pulmonic valve. Mild pulmonary valve regurgitation. Pericardium Normal pericardium without effusion. Aorta Normal ascending aorta dimension. Henry Ni (Electronically Signed) 09 May 2016 Final Date: 19:10
== END 2016-05-09 12:28 | disposition home or self-care (01) | DRG 247 ==
LOC: EDUNIT# → EDBD → N.EDINP 00:24 → N.ED 00:24 → OBSVTOIN 02:14 → N.TELES 02:51
PROC: CLCCHCL (ICD-10-PCS; 2016-05-08 08:15)